=== PATIENT | male | born 1955 | race Caucasian/White ===

== ENCOUNTER 2023-03-18 13:46 | Day surgery (SDC) | payer OTHER, SELFPAY ==
--- NOTE | 2023-03-18 | PATH_ITS ---
[facility] Accession Number: [id number] No. of containers..01 Tissue . 01 Material submitted: . rectum - RECTAL POLYP . 01 Diagnosis: Rectum, Polypectomy: Hyperplastic polyp. MRV 03/24/2023 1424 Local . 01 Electronically signed: . Chey Ornelas MD, Pathologist NPI- [id number] . 01 Gross description: . RECTAL POLYP: Received in formalin are 4 fragment(s) of fowler, soft tissue measuring 0.1 x 0.1 x 0.1 cm to 0.3 x 0.2 x 0.2 cm submitted entirely in 1 cassette(s) /MARCIO 03/19/2023 2304 Local . 01 Pathologist provided ICD-10: K62.1 . 01 CPT . 088252 Specimen Comment: A courtesy copy of this report has been sent to [phone] Performed at: 01 [facility] [address] [place] [address], [place], [place] [id number] MD oJse Maher MD Phone: [phone]
[2023-03-18 13:59] VITALS: BP 140/80; PULSE 62; RESP 18; TEMP 36.4; O2SAT 100; BMI 21.7
[2023-03-18] MEDS: LACTATED RINGERS 1,000 ML 200 ML IV (14:07)
--- NOTE | 2023-03-18 14:55 | PM.PREOP ---
Pre-operative Note Interval Note History & Physical reviewed/Exam performed by Physician: Yes Changes to H&P: No
--- NOTE | 2023-03-18 15:59 | PM.OP.COLON ---
Operative Date/Time/Diagnoses Date of procedure: 03/18/23 Time of procedure: 15:59 Pre-op diagnosis: Colorectal screening Post-op diagnosis: other (Colonic polyps x2) Procedure & Clinicians Study performed: Colonoscopy and polypectomy Same procedure as scheduled: Yes Indications: Colorectal screening Surgeon: Prince Sarabia Procedure Notes Procedure in detail: The history and physical was performed/updated and the patient is ASA class is 2. The procedure was discussed in detail with the patient. Potential risks complications including infection, bleeding, missed diagnosis, perforation, need for surgery, and were explained. Their questions were answered and informed consent was obtained. Patient was brought to the procedure room and placed standard monitoring equipment. The patient's vital signs were monitored continuously throughout the entire procedure. Prior to starting time-out was performed. The patient was placed in the left lateral recumbent position. Procedural sedation was administered by anesthesia. Examination began with a thorough inspection of the perianal area there was no evidence of fissures, fistulae, external hemorrhoids or cutaneous malignancy. The colonoscopy scope was then placed into the anal canal and was advanced to the cecum, which was identified by the ileocecal valve, the appendiceal orifice and the confluence of the taenia. The scope was then slowly withdrawn examining colon thoroughly in all directions, irrigating it of any residual stool. Within the rectum 2 polyps of approximately 5 mm each were removed with biopsy forceps. Remainder of the colonoscopy was unremarkable The patient tolerated the procedure well. They will be discharged once criteria are met. The prep was of good/excellent quality. The withdrawl time was 6 minutes. Impression: Colonic polyps x2 Post-procedure Plan for aftercare: Follow-up is dependent on pathology findings Disposition: same day surgery
[2023-03-18 16:00] VITALS: BP 112/49; PULSE 51; RESP 17; TEMP 36.4; O2SAT 99
[2023-03-18 16:08] VITALS: BP 137/46; PULSE 74; RESP 15; O2SAT 92
[2023-03-18 16:11] VITALS: BP 105/61; PULSE 64; RESP 24; TEMP 36.7
[2023-03-18 16:13] VITALS: BP 119/64; PULSE 70; RESP 15; O2SAT 98
== END 2023-03-18 16:20 | disposition home or self-care (01) ==
PROVIDERS: PCP Nurse Practitioner Family; Referring Provider Surgery; Visit Provider Surgery
PROC: 0DJD8ZZ Inspection of Lower Intestinal Tract, Via Natural or Artificial Opening Endoscopic (ICD-10-PCS; CPT 45378; principal; 2023-03-18 15:00)
DX: Z12.11 Encounter for screening for malignant neoplasm of colon (principal); K62.1 Rectal polyp
CPT/HCPCS: 45380